=== PATIENT | female | born 1965 | race Caucasian/White ===

== ENCOUNTER 2016-10-15 13:36 | Emergency (ER) | payer OTHER ==
[~2016-10-15] VITALS: Ht 170.2 cm; Wt 72.6 kg
[~2016-10-15 13:36] MED LIST: MULT-506 PO
[2016-10-15 13:45] VITALS: TEMP 37; Ht 170.2 cm; Wt 72.6 kg
[2016-10-15] MEDS ORDERED: DiphenhydrAMINE HCL 50 MG/ML VIAL ONE (13:51)
[2016-10-15] MEDS ORDERED: FAMOTIDINE 20MG/102 ML D5W ONE (13:51)
[2016-10-15] MEDS ORDERED: EPINEPHRINE ADULT AUTO-INJECT 0.3 MG SYR ONE (13:51)
[2016-10-15] MEDS ORDERED: METHYLPREDNISOLONE 125 MG VIAL ONE (13:51)
[2016-10-15] MEDS ORDERED: DiphenhydrAMINE HCL 50 MG/ML VIAL IV STA (13:52)
[2016-10-15] MEDS ORDERED: METHYLPREDNISOLONE 125 MG VIAL IV STA (13:52)
[2016-10-15] MEDS ORDERED: FAMOTIDINE 20MG/102 ML D5W IV STA (13:52)
[2016-10-15] MEDS ORDERED: EpINEphrine INJ 1MG/ML AMP 1 MG/ML AMP IM STA (13:52)
--- NOTE | 2016-10-15 14:10 | EMERGENCY ROOM VISIT NOTE ---
History Report prepared by Roe: John Douglas Under the Supervision of: Dr. iDpesh Lal M.D. First contact with patient: 13:47 Chief Complaint: ALLERGIC REACTION Stated Complaint: ALLERGIC REACTION Nursing Triage Summary: Triage Note: Pt reports facial swelling since approx 1215 while at the grocery store. pt reports taking 3 benedryl tablets prior to arrival to ed. pt reports "i am talking funny and my throat feels funny." pt reports she does not know what is causing the reaction and that this happend once before on sep 17 2016 but she did not seek medical attention at that time. History of Present Illness The patient is a 50 year old female who presents to the Emergency Room with complaints of a worsening allergic reaction beginning two hours ago. Her symptoms include facial swelling, and throat soreness. She states that she used Flonase shortly before her symptoms began and feels that this may be related. The patient has a history of similar symptoms but is uncertain as to what she is allergic to. She denies eating any abnormal foods. Source of History: patient Onset: two hours prior to arrival Position: head (face) Quality: other (possible allergic reaction) Timing: worsening Note: The patient also complains of throat soreness. Review of Systems See HPI for pertinent positives & negatives. A total of 10 systems reviewed and were otherwise negative. Past Medical & Surgical Medical Problems: (1) GERD (gastroesophageal reflux disease) Family History No pertinent family history stated. Social History Smoking Status: Never Smoker Marital Status: Current/Historical Medications Scheduled Epinephrine (Epipen 2-Nathan), 1 DOSE IM DIRECTED Omeprazole (Prilosec), 1 CAP PO DAILY Prednisone (Prednisone), 2 TAB PO DAILY Allergies Coded Allergies: Sulfamethoxazole w/Trimethoprim (Unverified Allergy, Severe, THROAT CLOSES , 10/15/16) Uncoded Allergies: OPIATEAGONISTS (Allergy, Unknown, 10/09/09) Physical Exam Vital Signs Date Time Temp Pulse Resp B/P Pulse Ox O2 Delivery O2 Flow Rate FiO2 10/15/16 17:31 79 16 107/71 97 Room Air 10/15/16 16:44 89 16 119/61 98 Room Air 10/15/16 16:15 69 16 103/64 97 Room Air 10/15/16 15:45 77 16 108/74 98 Room Air 10/15/16 15:15 81 20 102/75 98 Room Air 10/15/16 14:58 77 16 113/79 98 Room Air 10/15/16 14:43 120/72 122/72 10/15/16 14:36 88 15 98 10/15/16 14:34 116/81 10/15/16 14:06 86 22 100 10/15/16 14:02 134/88 10/15/16 13:58 75 10/15/16 13:45 37.0 68 18 148/88 99 Room Air 10/15/16 13:43 98 Room Air Physical Exam GENERAL: Patient is in no acute distress. HEENT: Edema around both eyes without cellulitis. Edema of both upper and lower lips. No uvular edema or posterior pharyngeal swelling. Mucous membranes are moist. NECK: No stridor, no adenopathy, no meningismus, trachea is midline. LUNGS: Clear to auscultation bilaterally, no wheeze, no rhonchi, breath sounds equal. HEART: Without murmurs gallops or rubs, regular rate and rhythm. ABDOMEN: Soft, nontender, bowel sounds positive, no hernias, no peritonitis. EXTREMITIES: No cyanosis or edema, full range of motion of all the joints without pain or difficulty, no signs for acute trauma. NEUROLOGIC: Oriented x 3, no acute motor or sensory deficits, no focal weakness. SKIN: No rash, no jaundice, no diaphoresis. Medical Decision & Procedures Medications Administered Medications (Trade) Dose Ordered Sig/Jj Route Start Time Stop Time Status Last Admin Dose Admin Diphenhydramine HCl (Benadryl Inj) 25 mg NOW STAT IV 10/15/16 13:52 10/15/16 13:53 DC 10/15/16 13:58 25 MG Famotidine (Pepcid 20mg/100 ml) 20 mg ONE STAT IV 10/15/16 13:52 10/15/16 13:53 DC 10/15/16 13:57 20 MG Methylprednisolone Sodium Succinate (Solu-Medrol IV) 125 mg NOW STAT IV 10/15/16 13:52 10/15/16 13:53 DC 10/15/16 13:57 125 MG Epinephrine (Epipen) 0.3 mg STK-MED ONCE .ROUTE 10/15/16 13:51 10/15/16 13:53 DC 10/15/16 13:59 0.3 MG ED Course 1349: The patient was evaluated in room B1. A complete history and physical exam was performed. 1352: Ordered Solu-Medrol 125 mg IV, Pepcid 20 mg/100 mL 20 mg IV, Benadryl Inj 25 mg IV, Epinephrine HCl 0.3 mg IM. 1519: I reassessed the patient. She is feeling a lot better. 1734: I checked in on the patient. She feels better and would like to go home. 1740: Reevaluated the patient. Discussed results and discharge instructions: she verbalized understanding and agreement. The patient is ready for discharge. Medical Decision The patient is a 50 year old female who presents to the ED with complaints of an allergic reaction. Differential diagnoses considered include acute allergic reaction, anaphylaxis, food/environmental/medication allergy, uvular edema, as well as other etiologies were considered. The patient presents with an acute allergic reaction involving her face. Her throat feels tight. She was aggressively managed. She had taken some oral Benadryl prior to arrival. The patient received IM epinephrine, IV Solu-Medrol, IV Pepcid and IV Benadryl. She was watched on the monitor for 4 hours. She has had marked improvement in her symptoms, the facial swelling and edema have almost completely resolved. At this point, the cause for the allergic reaction is unclear. The patient will avoid Flonase for now in case this was the culprit. She is being discharged with an EpiPen. She will be on prednisone and Benadryl for the next few days. If she is worsening, she can return. She will see her doctor as an outpatient for allergy testing. Impression Primary Impression: Acute allergic reaction Scribe Attestation The scribe's documentation has been prepared under my direction and personally reviewed by me in its entirety. I confirm that the note above accurately reflects all work, treatment, procedures, and medical decision making performed by me. Departure Information Dispostion Home / Self-Care Prescriptions Epinephrine (EPIPEN 2-NATHAN) 0.3 Mg Inj 1 DOSE IM DIRECTED, #1 APPL Prov: Dipesh Lal M.D. 10/15/16 Prednisone (Prednisone) 20 Mg Tab 2 TAB PO DAILY for 4 Days, #8 TAB Prov: Dipesh Lal M.D. 10/15/16 Referrals Domitila York D.O. (PCP) Forms HOME CARE DOCUMENTATION FORM, IMPORTANT VISIT INFORMATION Patient Instructions [facility] Additional Instructions benadryl 2 tab 3x per day for 4 days sleep with the head elevated prednisone daily for 4 more days no more flonase for now keep epipen with you at all times and use if needed return for worsening symptoms follow with john md for recheck--you may need allergy testing
[2016-10-15] MEDS ORDERED: PRLSR20 PO (15:18)
[2016-10-15 17:31] VITALS: BP 107/71; PULSE 79; O2SAT 97
[2016-10-15] MEDS ORDERED: PRED20TA PO (17:36)
[2016-10-15] MEDS ORDERED: EPP3/2 IM (17:36)
[2016-10-15] MEDS ORDERED: EPINEPHRINE ADULT AUTO-INJECT 0.3 MG SYR IM STA (17:37)
== END 2016-10-15 17:51 | disposition home or self-care (01) ==
LOC: C.EDB 13:37
DX: T78.40XA Allergy, unspecified, initial encounter (principal); R22.0 Localized swelling, mass and lump, head; J02.9 Acute pharyngitis, unspecified; K21.9 Gastro-esophageal reflux disease without esophagitis; Z79.899 Other long term (current) drug therapy; X58.XXXA Exposure to other specified factors, initial encounter

== ENCOUNTER → 2017-07-03 | Outpatient (CLI) | payer OTHER ==
[~2017-07-03] MED LIST changes: +EPP3/2 IM; -MULT-506 PO; +PRLSR20 PO
--- NOTE | 2017-07-04 07:25 | MAMMOGRAPHY REPORT ---
BILATERAL DIGITAL SCREENING MAMMOGRAM TOMOSYNTHESIS WITH CAD: 07/03/2017 CLINICAL HISTORY: Routine screening. Patient has no complaints. TECHNIQUE: Breast tomosynthesis in addition to standard 2D mammography was performed. Current study was also evaluated with a Computer Aided Detection (CAD) system. COMPARISON: Comparison is made to exams dated: 06/28/2016 mammogram, 06/23/2015 mammogram, 4 mammogram, 06/18/2013 mammogram, 05/28/2010 mammogram, and 06/03/2011 mammogram - [facility]. BREAST COMPOSITION: The tissue of both breasts is heterogeneously dense, which may obscure small mas ses. FINDINGS: Again noted is a stable well-circumscribed 8 mm mass in the central right breast, unchanged dating back to at least 2008, therefore likely benign. No new suspicious mass, architectural distor tion or cluster of microcalcifications is seen. IMPRESSION: ACR BI-RADS CATEGORY 1: NEGATIVE There is no mammographic evidence of malignancy. A 1 year screening mammogram is recommended. The pa tient will receive written notification of the results. Approximately 10% of breast cancers are not detected with mammography. A negative mammographic report should not delay biopsy if a clinically suggestive mass is present. Ching Jerome M.D. ay/:07/03/2017 15:21:51 Airline Mechanic: Anna ARMIJO)(M), [facility] letter sent: Normal 1/2 BI-RADS Code: ACR BI-RADS Category 1: Negative
== END | disposition home or self-care (01) ==
LOC: C.MAMM 09:29
PROVIDERS: ATTEND Obstetrics & Gynecology
DX: Z12.31 Encounter for screening mammogram for malignant neoplasm of breast (principal)

== ENCOUNTER 2022-06-10 12:54 | Inpatient (IN) ==
[2022-06-10] MEDS ORDERED: METOPROLOL TARTRATE 1 MG/ML VIAL IV STA (13:18)
[2022-06-10] MEDS ORDERED: SODIUM CHLORIDE 0.9% 1000ML 1,000 ML IV ONE (13:21)
--- NOTE | 2022-06-10 13:21 | Emergency Department Note ---
Impression & Plan Atrial tachycardia, Chest pain, Shortness of breath ED Provider Note NAME: JANELLE HUANG AGE: 56 SEX: F : 1965 ARRIVES VIA: Walk-In INFORMANT: Patient ED PROVIDER(S): Willard Rendon DO CHIEF COMPLAINT: palpitations HPI: Patient is a 59-year-old female who presents ER for palpitations. She has a past medical history of GERD. She admits to chest pain and shortness of breath with any exertion which has been going on for the past 5 days. She notes this normally coincides with her heart racing. This occurs intermittently. Her heart rate can start increasing regardless of whether she is sitting or up moving around. No dysuria, urgency, or frequency. She notes she has constant chest tightness. Patient denies diabetes, hypertension, hyperlipidemia, CAD, history of sudden at a young age, and smoking. ROS: See above HPI for pertinent positives & negatives. A total of 10 systems reviewed and were otherwise negative. PAST MEDICAL HISTORY:See Below PAST SURGICAL HISTORY:See Below FAMILY HISTORY:See Below SOCIAL HISTORY:See Below HOME MEDICATIONS:See Below ALLERGIES:See Below VITALS:See Below PHYSICAL EXAMINATION: GENERAL: Sitting up in bed, alert, well appearing, well nourished, no distress, non-toxic EYE EXAM: normal conjunctiva. OROPHARYNX: no exudate, no erythema, lips, buccal mucosa, and tongue normal and mucous membranes are moist NECK: supple, no nuchal rigidity, no adenopathy, non-tender LUNGS: Clear to auscultation. Normal chest wall mechanics HEART: no murmurs, S1 normal and S2 normal ABDOMEN: abdomen soft, non-tender, normo-active bowel sounds, no masses, no rebound or guarding. UPPER EXTREMITIES: upper extremities are grossly normal. LOWER EXTREMITIES: No pitting edema. NEURO EXAM: Normal sensorium, cranial nerves II-XII grossly intact, normal speech, no gross weakness of arms, no gross weakness of legs. MEDICAL DECISION MAKING: Patient is a 56-year-old female who presents ER for palpitations associated with chest pressure and shortness of breath. This been coming going for the past 5 days but fairly constant today and consequently she came in. IV was established blood work was obtained. Labs show no significant leukocytosis or anemia. BMP with LFTs bilirubin and TSH was unremarkable. Lipase was normal. Troponin was negative. COVID was negative. Chest x-ray unremarkable. EKG and monitoring showing that she is varying between a sinus rhythm in the 70s and 80s and then atrial tachycardia in the 130s. This occurred multiple times. She was given dose of Lopressor. Did discuss with Dr. Arnold Sneed and the [facility] hospitalist for further evaluation. Following Lopressor heart rate trended down. She remained hemodynamically stable in the ER. She is updated bedside. Triage Nursing notes reviewed. Limited review of prior medical records performed Vital Signs: reviewed and remarkable for HTN Differential diagnosis: Cardiac ischemia, aortic dissection, pulmonary embolism, pneumothorax, pneumonia, pericarditis, myocarditis, esophageal rupture, GERD, cholecystitis, pancreatitis, musculoskeletal, as well as other pathologies. ER treatment provided: See below Diagnostics interpreted by me: ECG: Atrial tachycardia rate of 126 Normal axis No PVCs Nonspecific ST wave changes in the lateral leads QTC 460 Cardiac Monitoring: An order was placed for continuous cardiac monitoring. The monitor shows a rate of 122 with sinus rhythm. Laboratory studies: As stated above and show below. Imaging studies: Portable AP upright 1 view of the chest unremarkable Consultation(s): As described above Procedures: none Critical Care: None Past Med/Surg History Medical History (Updated 06/10/22 @ 18:18 by Willard Rendon DO) GERD (gastroesophageal reflux disease) OCCASIONAL History of COVID-19 08/2020 SOB, NAUSEA, FATIGUE- ER VISIT- NO HOSPITALIZATION Sinus tachycardia Surgical History History of section History of colonoscopy History of dilatation and curettage History of esophagogastroduodenoscopy (EGD) History of hysterectomy RAVEN History of open reduction and internal fixation (ORIF) procedure RIGHT WRIST History of repair of rotator cuff RIGHT History of tonsillectomy Hx of elbow surgery BILAT Family History Father Prostate cancer Other No pertinent family history Denies family history of Ovarian cancer Breast cancer Colorectal cancer Social History Smoking Status: Former smoker Tobacco Type: Cigarettes Second Hand Exposure: No; Hx Alcohol Use: Yes (1-2 DAILY) Alcohol type: hard liquor Hx Substance Use: No Preferred Language: Greenlandic Communication Ability: Effective Trashman Required: No Beliefs That Will Affect Care: None Current Living Situation: Spouse Feels Safe at Home: Yes Assistive Devices: Glasses Allergies Allergies Allergy/AdvReac Type Severity Reaction Status Date / Time fluticasone [From Flonase] Allergy Severe FACE AND Verified 06/10/22 17:21 EYES SWELLED UP--HAD TO COME TO ER. sulfamethoxazole Allergy Severe THROAT Verified 06/10/22 17:21 CLOSES trimethoprim Allergy Severe THROAT Verified 06/10/22 17:21 CLOSES Home Meds Home Medications Medication Instructions Recorded Confirmed ibuprofen 200 mg tablet (Advil) 600 - 800 mg PO Q8 PRN Pain 06/10/22 06/10/22 omeprazole magnesium 20 mg 20 mg PO DAILY PRN Acid Reflux 06/10/22 06/10/22 tablet,delayed release (Prilosec OTC) Results & Data (ED) Vital Signs Vital Signs - 24 hr 06/10/22 12:56 06/10/22 13:37 06/10/22 13:48 Temperature 36.6 C Temperature Source Temporal Artery Scan Pulse Rate 89 92 H Pulse Rate [Apical] 86 Respiratory Rate 14 18 Respiratory Effort / Characteristics Non-Labored Respiratory Depth Normal Respiratory Pattern Regular Blood Pressure 145/97 H 127/98 Blood Pressure [Right Arm] 126/84 Blood Pressure Mean 113 Blood Pressure Mean [Right Arm] 98 Blood Pressure Position Sitting Blood Pressure Position [Right Arm] Sitting Pulse Oximetry 99 98 Oxygen Delivery Method Room Air Sepsis Recent Fever Within 48 Hours No Sepsis New/Unexplained Change in Mental Status N/A Sepsis Action Taken by Nursing No Action Required 06/10/22 13:48 06/10/22 13:48 06/10/22 15:00 Temperature Temperature Source Pulse Rate 99 H Pulse Rate [Apical] 100 H Respiratory Rate 18 18 Respiratory Effort / Characteristics Respiratory Depth Respiratory Pattern Blood Pressure Blood Pressure [Right Arm] 113/85 Blood Pressure Mean Blood Pressure Mean [Right Arm] 94 Blood Pressure Position Blood Pressure Position [Right Arm] Pulse Oximetry 98 Oxygen Delivery Method Room Air Room Air Sepsis Recent Fever Within 48 Hours Sepsis New/Unexplained Change in Mental Status Sepsis Action Taken by Nursing Laboratory Data Result diagrams: 06/10/22 13:22 06/10/22 13:22 Lab Results 06/10/22 06/10/22 06/10/22 Range/Units 13:22 13:22 13:22 WBC 5.43 (4.8-10.8) K/ul RBC 4.39 (3.93-5.22) M/uL Hgb 14.2 (12.0-16.0) g/dl Hct 41.5 (34.1-44.9) % MCV 94.5 (80.0-100.0) fL MCH 32.3 (25.0-34.0) pg MCHC 34.2 (32.0-36.0) g/dL RDW Std Deviation 49.1 H (36.4-46.3) fL RDW Coeff of Linsey 14.0 (11.5-14.5) % Plt Count 258 (130-400) K/uL MPV 9.6 (9.4-12.3) fL Immature Gran % (Auto) 0.6 % Neut % (Auto) 69.1 % Lymph % (Auto) 21.4 % Redwood % (Auto) 7.6 % Eos % (Auto) 0.7 % Baso % (Auto) 0.6 % Neut # (Auto) 3.76 (1.4-6.5) K/uL Lymph # (Auto) 1.16 L (1.2-3.4) K/uL Redwood # (Auto) 0.41 (0.24-0.82) K/uL Eos # (Auto) 0.04 (0-0.50) K/uL Baso # (Auto) 0.03 (0-0.2) K/uL Immature Gran # (Auto) 0.03 H (0.00-0.02) K/uL D-Dimer 530 H* (0-500) ug/L FEU Sodium 139 (136-145) mmol/L Potassium 4.1 (3.5-5.1) mmol/L Chloride 103 (98-107) mmol/L Carbon Dioxide 29 (21-32) mmol/L Anion Gap 7 (3-11) BUN 19 (6-23) mg/dl Creatinine 0.89 (0.6-1.2) mg/dl Est Cr Clr Drug Dosing 68.6 ml/min Est GFR ( Amer) 84.0 ml/min Est GFR (Non-Af Amer) 72.5 ml/min BUN/Creatinine Ratio 21.3 H (10-20) Glucose 94 (70-99(Fasting)) mg/dl Calcium 9.6 (8.5-10.1) mg/dl Total Bilirubin 0.4 (0.2-1.0) mg/dl AST 18 (13-39) U/L ALT 15 (7-52) U/L Alkaline Phosphatase 57 (34-104) U/L Troponin I High Sens < 2.3 (0-14) pg/ml Total Protein 6.6 (6.0-8.3) gm/dl Albumin 4.5 (3.4-5.0) gm/dl Globulin 2.1 L (2.5-4.0) gm/dl Albumin/Globulin Ratio 2.1 H (0.9-2) Lipase 55 (11-82) U/L TSH (0.300-4.500) uIu/ml SARS-CoV-2, RNA, NAAT (NEGATIVE) 06/10/22 06/10/22 06/10/22 Range/Units 13:33 15:04 16:17 WBC (4.8-10.8) K/ul RBC (3.93-5.22) M/uL Hgb (12.0-16.0) g/dl Hct (34.1-44.9) % MCV (80.0-100.0) fL MCH (25.0-34.0) pg MCHC (32.0-36.0) g/dL RDW Std Deviation (36.4-46.3) fL RDW Coeff of Linsey (11.5-14.5) % Plt Count (130-400) K/uL MPV (9.4-12.3) fL Immature Gran % (Auto) % Neut % (Auto) % Lymph % (Auto) % Redwood % (Auto) % Eos % (Auto) % Baso % (Auto) % Neut # (Auto) (1.4-6.5) K/uL Lymph # (Auto) (1.2-3.4) K/uL Redwood # (Auto) (0.24-0.82) K/uL Eos # (Auto) (0-0.50) K/uL Baso # (Auto) (0-0.2) K/uL Immature Gran # (Auto) (0.00-0.02) K/uL D-Dimer (0-500) ug/L FEU Sodium (136-145) mmol/L Potassium (3.5-5.1) mmol/L Chloride (98-107) mmol/L Carbon Dioxide (21-32) mmol/L Anion Gap (3-11) BUN (6-23) mg/dl Creatinine (0.6-1.2) mg/dl Est Cr Clr Drug Dosing ml/min Est GFR ( Amer) ml/min Est GFR (Non-Af Amer) ml/min BUN/Creatinine Ratio (10-20) Glucose (70-99(Fasting)) mg/dl Calcium (8.5-10.1) mg/dl Total Bilirubin (0.2-1.0) mg/dl AST (13-39) U/L ALT (7-52) U/L Alkaline Phosphatase (34-104) U/L Troponin I High Sens 2.4 (0-14) pg/ml Total Protein (6.0-8.3) gm/dl Albumin (3.4-5.0) gm/dl Globulin (2.5-4.0) gm/dl Albumin/Globulin Ratio (0.9-2) Lipase (11-82) U/L TSH 0.929 (0.300-4.500) uIu/ml SARS-CoV-2, RNA, NAAT NEGATIVE (NEGATIVE) Administered Medications Discontinued Medications Sodium Chloride (Nss 1000ml) 1,000 mls @ 999 mls/hr IV .Q1H1M ONE Stop: 06/10/22 14:21 Last Infusion: 06/10/22 15:02 Dose: 0 mls/hr Documented By: Admin: 06/10/22 13:36 Dose: 999 mls/hr Documented By: NISHI Ioversol (Ioversol 350 Mg 100ml Prefilled Syringe) 117 ml IV ONCE ONE Stop: 06/10/22 17:20 Last Admin: 06/10/22 17:21 Dose: 117 ml Documented By: RAMILA Ioversol (Optiray 300 500ml) 117 ml IV ONCE ONE Stop: 06/10/22 17:24 Last Admin: 06/10/22 17:23 Dose: 117 ml Documented By: RAMILA Metoprolol Tartrate (Metoprolol Tartrate 1 Mg/Ml Vial) 5 mg IV NOW STA Stop: 06/10/22 13:19 Last Admin: 06/10/22 13:37 Dose: 5 mg Documented By: AY Imaging Data Radiologist's Impression: Chest X-Ray 06/10/22 13:05 XR chest 1V portable HISTORY: 56 years-old Female Chest Pain . Chest pain COMPARISON: Chest radiograph 08/27/2020 TECHNIQUE: AP view of the chest FINDINGS: Cardiomediastinal and hilar silhouettes are within normal limits. No pneum othorax, pleural effusion, airspace consolidation or overt pulmonary edema. Bones of the chest appear grossly intact. IMPRESSION: No acute process. ACT 112: Negative or not required by law. The above report was generated using voice recognition software. It may contain grammatical, syntax or spelling errors. Electronically signed by: Rikki Farias M.D. 06/10/2022 2:06 PM Chest CTA 06/10/22 16:39 CT ANGIOGRAPHY OF THE CHEST, PULMONARY EMBOLUS PROTOCOL CLINICAL HISTORY: Chest pain. Shortness of breath. Tachycardia. Evaluate for pulmonary embolus. COMPARISON STUDY: Chest CT June 27, 2020. Chest radiograph performed earlier today. TECHNIQUE: Following IV administration of 117 mL of Optiray, helical axial images of the chest were obtained utilizing the pulmonary embolus protocol. Maximal intensity projections and sagittal and coronal reformats were viewed on an independent 3D workstation. IV contrast was administered without complication. Automated exposure control was utilized for the study. A dose lowering technique was utilized adhering to the principles of ALARA. CT DOSE: 315.68 mGy.cm FINDINGS: No pulmonary emboli are identified. There is no thoracic aortic dissection. Size of the heart is normal. No pericardial effusion is present. No enlarged axillary, mediastinal or hilar lymph nodes are present. A 9 mm central right breast nodule is unchanged since prior CT. This is probably benign. Possib le small hiatal hernia. There is no consolidation to suggest pneumonia. Minimal subpleural ground glass opacities reflect atelectasis. Central airways are patent. There is no pneumothorax or pleural effusion. No acute fracture or suspicious lesion within the visualized bony thorax is identified. Visualized portions of the upper abdomen are unremarkable. IMPRESSION: 1. No pulmonary emboli identified. 2. No acute intrathoracic findings. ACT 112: Negative or not required by law. Electronically signed by: Jamar Lucia M.D. 06/10/2022 5:34 PM Discharge Plan Visit Data Chief Complaint: Cardiac Assessment Stated Complaint: HEART PROBLEMS ED Provider: Willard Rendon Discharge Problem: Atrial tachycardia, Chest pain, Shortness of breath Forms Stand Alone Forms: [facility] [employer] Prescriptions Prescriptions: No Action ibuprofen [Advil] 200 mg Tablet 600 - 800 mg PO Q8 PRN (Reason: Pain) omeprazole magnesium [Prilosec OTC] 20 mg Tablet,Delayed Release (Dr/Ec) 20 mg PO DAILY PRN (Reason: Acid Reflux) Referrals Referrals: Domitila York DO [Primary Care Provider] -
[2022-06-10 13:36] LABS: Basophils # (auto) 0.03 K/uL (0-0.2); Basophils % (auto) 0.6 %; Eosinophils # (auto) 0.04 K/uL (0-0.50); Eosinophils % (auto) 0.7 %; Hematocrit (blood only) 41.5 % (34.1-44.9); Hemoglobin 14.2 g/dl (12.0-16.0); Immature Granulocytes # (auto) 0.03 K/uL (0.00-0.02); Immature Granulocytes % (auto) 0.6 %; Lymphocytes # (auto) 1.16 K/uL (1.2-3.4); Lymphocytes % (auto) 21.4 %; Mean Corpuscular Hemoglobin 32.3 pg (25.0-34.0); Mean Corpuscular Hgb Conc 34.2 g/dL (32.0-36.0); Mean Corpuscular Volume 94.5 fL (80.0-100.0); Mean Platelet Volume 9.6 fL (9.4-12.3); Monocytes # (auto) 0.41 K/uL (0.24-0.82); Monocytes % (auto) 7.6 %; Neutrophils # (auto) 3.76 K/uL (1.4-6.5); Neutrophils % (auto) 69.1 %; Platelet Count 258 K/uL (130-400); RDW Standard Deviation 49.1 fL (36.4-46.3); Red Blood Count 4.39 M/uL (3.93-5.22); White Blood Count 5.43 K/ul (4.8-10.8)
[2022-06-10 14:06] LABS: Alanine Aminotransferase 15 U/L (7-52); Albumin Globulin Ratio 2.1 (0.9-2); Albumin Level 4.5 gm/dl (3.4-5.0); Alkaline Phosphatase 57 U/L (34-104); Anion Gap 7 (3-11); Aspartate Aminotransferase 18 U/L (13-39); BUN Creatinine Ratio 21.3 (10-20); Bilirubin,Total 0.4 mg/dl (0.2-1.0); Blood Urea Nitrogen 19 mg/dl (6-23); Calcium 9.6 mg/dl (8.5-10.1); Carbon Dioxide 29 mmol/L (21-32); Chloride 103 mmol/L (98-107); Creatinine Clr Calc Pharmacy 68.6 ml/min; Est GFR (Non-African American) 72.5 ml/min; Globulin 2.1 gm/dl (2.5-4.0); Glucose 94 mg/dl (70-99(Fasting)); Lipase 55 U/L (11-82); Potassium 4.1 mmol/L (3.5-5.1); Sodium 139 mmol/L (136-145); Total Protein 6.6 gm/dl (6.0-8.3)
--- NOTE | 2022-06-10 14:08 | XRay Report ---
XR chest 1V portable HISTORY: 56 years-old Female Chest Pain . Chest pain COMPARISON: Chest radiograph 08/27/2020 TECHNIQUE: AP view of the chest FINDINGS: Cardiomediastinal and hilar silhouettes are within normal limits. No pneumothorax, pleural effusion, airspace consolidation or overt pulmonary edema. Bones of the chest appear grossly intact. IMPRESSION: No acute process. ACT 112: Negative or not required by law. The above report was generated using voice recognition software. It may contain grammatical, syntax o r spelling errors. Electronically signed by: Rikki Farias M.D. 06/10/2022 2:06 PM
[2022-06-10 14:09] LABS: Troponin I High Sensitivity < 2.3 pg/ml (0-14)
--- NOTE | 2022-06-10 15:43 | History & Physical Report ---
Date of Service June 10, 2022 Assessment & Plan (1) Sinus tachycardia: Plan: Admit the patient to telemetry As needed Lopressor TSH normal. No further work-up needed Will check D-dimer to rule out thromboembolic disease. If elevated, will order CT angiogram of the chest to rule out PE D- Dimer elevated and I ordered stat CTA of chest which is negative for PE. Present on Admission?: Yes History of Present Illness Chief Complaint: Palpitation Primary Care Provider: Domitila York DO Patient is a 56-year-old female with no significant past medical history who presented to the hospital with palpitation and chest tightness since 5 days ago. This could happen in any condition. It is associated with lightheadedness and tightness of the chest. She is a started on hormonal treatment for menopause few weeks ago and she thought that palpitation could be due to that. She stopped her medication 2 days ago but the palpitation continues to persist. She denies chest pain but complains of tightness. No complaint of shortness of breath, fever or chills, nausea or vomiting, abdominal pain or other GI or symptoms. She did not have recent travels or long distance flight. She experienced a crampy pain in left calf muscle a week ago which resolved. She denies any swelling or discoloration of lower extremities. She also does not remember any thyroid work-up. She sees her primary care physician on regular basis and is not currently taking any treatment for any medical problems. Allergies Allergy/AdvReac Type Severity Reaction Status Date / Time fluticasone [From Flonase] Allergy Severe FACE AND Verified 06/10/22 17:21 EYES SWELLED UP--HAD TO COME TO ER. sulfamethoxazole Allergy Severe THROAT Verified 06/10/22 17:21 CLOSES trimethoprim Allergy Severe THROAT Verified 06/10/22 17:21 CLOSES Home Medications Medication Instructions Recorded Confirmed Type ibuprofen 200 mg tablet (Advil) 600 - 800 mg PO Q8 PRN Pain 06/10/22 06/10/22 History omeprazole magnesium 20 mg 20 mg PO DAILY PRN Acid Reflux 06/10/22 06/10/22 History tablet,delayed release (Prilosec OTC) Past Med/Surg History Medical History (Updated 06/10/22 @ 15:41 by Sonya Robins MD) GERD (gastroesophageal reflux disease) OCCASIONAL History of COVID-19 08/2020 SOB, NAUSEA, FATIGUE- ER VISIT- NO HOSPITALIZATION Sinus tachycardia Surgical History History of section History of colonoscopy History of dilatation and curettage History of esophagogastroduodenoscopy (EGD) History of hysterectomy RAVEN History of open reduction and internal fixation (ORIF) procedure RIGHT WRIST History of repair of rotator cuff RIGHT History of tonsillectomy Hx of elbow surgery BILAT Family History Father Prostate cancer Other No pertinent family history Denies family history of Ovarian cancer Breast cancer Colorectal cancer Social History Smoking Status: Former smoker Tobacco Type: Cigarettes Second Hand Exposure: No; Hx Alcohol Use: Yes (1-2 DAILY) Alcohol type: hard liquor Hx Substance Use: No Preferred Language: Malian 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 Review of system is otherwise negative Physical Exam Constitutional: WD/WN, vitals as above Eyes: PERRL, conjunctivae normal, anicteric sclerae Neck: trachea midline, no thyromegaly Respiratory: normal respiratory effort, lungs clear to auscultation Cardiovascular: Rate/Rhythm: regular rhythm and + tachycardic Heart Sounds: normal S1 and normal S2 Gastrointestinal (Abdomen): normal bowel sounds, soft, nontender, no hepatosplenomegaly Musculoskeletal: no cyanosis or clubbing, extremities motor strength 5/5 Skin: no rashes, warm and dry Neurologic: patellar DTR's 2+ bilat, sensation intact and PERRL, EOMI, accommodation nl, no face palsy, no dysarthria Results & Data Results & Data ([facility]) Vital Signs (Past 12 Hours) Vital Signs Temp Pulse Pulse Resp BP BP Pulse Ox 06/10/22 13:48 99 H 18 98 06/10/22 13:48 06/10/22 13:48 86 18 126/84 98 06/10/22 13:37 92 H 127/98 06/10/22 12:56 36.6 C 89 14 145/97 H 99 O2 Del Method 06/10/22 13:48 Room Air 06/10/22 13:48 Room Air 06/10/22 13:48 06/10/22 13:37 06/10/22 12:56 Room Air Laboratory Results Laboratory Results WBC 5.43 K/ul (4.8-10.8) 06/10/22 13:22 RBC 4.39 M/uL (3.93-5.22) 06/10/22 13:22 Hgb 14.2 g/dl (12.0-16.0) 06/10/22 13:22 Hct 41.5 % (34.1-44.9) 06/10/22 13:22 MCV 94.5 fL (80.0-100.0) 06/10/22 13:22 MCH 32.3 pg (25.0-34.0) 06/10/22 13: MCHC 34.2 g/dL (32.0-36.0) 06/10/22 13:22 RDW Std Deviation 49.1 fL (36.4-46.3) H 06/10/22 13:22 RDW Coeff of Linsey 14.0 % (11.5-14.5) 06/10/22 13:22 Plt Count 258 K/uL (130-400) 06/10/22 13:22 MPV 9.6 fL (9.4-12.3) 06/10/22 13:22 Immature Gran % (Auto) 0.6 % 06/10/22 13:22 Neut % (Auto) 69.1 % 06/10/22 13:22 Lymph % (Auto) 21.4 % 06/10/22 13:22 [place]dwell % (Auto) 7.6 % 06/10/22 13:22 Eos % (Auto) 0.7 % 06/10/22 13:22 Baso % (Auto) 0.6 % 06/10/22 13:22 Neut # (Auto) 3.76 K/uL (1.4-6.5) 06/10/22 13:22 Lymph # (Auto) 1.16 K/uL (1.2-3.4) L 06/10/22 13:22 [place]dwell # (Auto) 0.41 K/uL (0.24-0.82) 06/10/22 13:22 Eos # (Auto) 0.04 K/uL (0-0.50) 06/10/22 13:22 Baso # (Auto) 0.03 K/uL (0-0.2) 06/10/22 13:22 Immature Gran # (Auto) 0.03 K/uL (0.00-0.02) H 06/10/22 13:22 Sodium 139 mmol/L (136-145) 06/10/22 13:22 Potassium 4.1 mmol/L (3.5-5.1) 06/10/22 13:22 Chloride 103 mmol/L (98-107) 06/10/22 13:22 Carbon Dioxide 29 mmol/L (21-32) 06/10/22 13:22 Anion Gap 7 (3-11) 06/10/22 13:22 BUN 19 mg/dl (6-23) 06/10/22 13:22 Creatinine 0.89 mg/dl (0.6-1.2) 06/10/22 13:22 Est Cr Clr Drug Dosing 68.6 ml/min 06/10/22 13:22 Est GFR ( Amer) 84.0 ml/min 06/10/22 13:22 Est GFR (Non-Af Amer) 72.5 ml/min 06/10/22 13:22 BUN/Creatinine Ratio 21.3 (10-20) H 06/10/22 13:22 Glucose 94 mg/dl (70-99(Fasting)) 06/10/22 13:22 Calcium 9.6 mg/dl (8.5-10.1) 06/10/22 13:22 Total Bilirubin 0.4 mg/dl (0.2-1.0) 06/10/22 13:22 AST 18 U/L (13-39) 06/10/22 13:22 ALT 15 U/L (7-52) 06/10/22 13:22 Alkaline Phosphatase 57 U/L (34-104) 06/10/22 13:22 Troponin I High Sens < 2.3 pg/ml (0-14) 06/10/22 13:22 Total Protein 6.6 gm/dl (6.0-8.3) 06/10/22 13:22 Albumin 4.5 gm/dl (3.4-5.0) 06/10/22 13:22 Globulin 2.1 gm/dl (2.5-4.0) L 06/10/22 13:22 Albumin/Globulin Ratio 2.1 (0.9-2) H 06/10/22 13:22 Lipase 55 U/L (11-82) 06/10/22 13:22 TSH 0.929 uIu/ml (0.300-4.500) 06/10/22 13:33 Impressions Chest X-Ray 06/10/22 13:05 XR chest 1V portable HISTORY: 56 years-old Female Chest Pain . Chest pain COMPARISON: Chest radiograph 08/27/2020 TECHNIQUE: AP view of the chest FINDINGS: Cardiomediastinal and hilar silhouettes are within normal limits. No pneumothorax, pleural effusion, airspace consolidation or overt pulmonary edema. Bones of the chest appear grossly intact. IMPRESSION: No acute process. ACT 112: Negative or not required by law. The above report was generated using voice recognition software. It may contain grammatical, syntax or spelling errors. Electronically signed by: Rikki Farias M.D. 06/10/2022 2:06 PM Code Status & VTE Plan Code Status Full code VTE Prophylaxis Plan VTE Prophylaxis will be ordered: Yes
[2022-06-10 16:34] LABS: D Dimer 530 ug/L FEU (0-500)
[2022-06-10] MEDS ORDERED: IOVERSOL 350 MG 100mL Prefilled Syringe IV ONE (17:19)
[2022-06-10] MEDS ORDERED: OPTIRAY 300 500mL IV ONE (17:23)
--- NOTE | 2022-06-10 17:37 | CT Scan Report ---
CT ANGIOGRAPHY OF THE CHEST, PULMONARY EMBOLUS PROTOCOL CLINICAL HISTORY: Chest pain. Shortness of breath. Tachycardia. Evaluate for pulmonary embolus. COMPARISON STUDY: Chest CT June 27, 2020. Chest radiograph performed earlier today. TECHNIQUE: Following IV administration of 117 mL of Optiray, helical axial images of the chest were o btained utilizing the pulmonary embolus protocol. Maximal intensity projections and sagittal and cor onal reformats were viewed on an independent 3D workstation. IV contrast was administered without co mplication. Automated exposure control was utilized for the study. A dose lowering technique was ut ilized adhering to the principles of ALARA. CT DOSE: 315.68 mGy.cm FINDINGS: No pulmonary emboli are identified. There is no thoracic aortic dissection. Size of the he art is normal. No pericardial effusion is present. No enlarged axillary, mediastinal or hilar lymph n odes are present. A 9 mm central right breast nodule is unchanged since prior CT. This is probably be nign. Possible small hiatal hernia. There is no consolidation to suggest pneumonia. Minimal subpleura l ground glass opacities reflect atelectasis. Central airways are patent. There is no pneumothorax or pleural effusion. No acute fracture or suspicious lesion within the visualized bony thorax is identi fied. Visualized portions of the upper abdomen are unremarkable. IMPRESSION: 1. No pulmonary emboli identified. 2. No acute intrathoracic findings. ACT 112: Negative or not required by law. Electronically signed by: Jamar Lucia M.D. 06/10/2022 5:34 PM
--- NOTE | 2022-06-10 18:25 | Electrocardiogram Report ---
Test Reason : Blood Pressure : / mmHG Vent. Rate : 070 BPM Atrial Rate : 070 BPM P-R Int : 120 ms QRS Dur : 086 ms QT Int : 354 ms P-R-T Axes : 037 059 048 degrees QTc Int : 382 ms Poor data quality, interpretation may be adversely affected Normal sinus rhythm Normal ECG When compared with ECG of 17-JAN-2022 09:46, No significant change was found Confirmed by Butch Chambers ([id number]) on 06/10/2022 6:25:36 PM Referred By: REFERRED SELF Confirmed By:Willy Chambers
[2022-06-10] MEDS ORDERED: MAGNESIUM HYDROXIDE SUSP 30 ML UDC PO PRN (18:40)
[2022-06-10] MEDS ORDERED: ALUMINUM/MAGNESIUM SUSP 30 ML UDC PO PRN (18:40)
[2022-06-10] MEDS ORDERED: METOPROLOL TARTRATE 1 MG/ML VIAL IV PRN ×2 (18:40→18:53)
[2022-06-10] MEDS ORDERED: ONDANSETRON INJ 2 MG/ML 2 ML VIAL IV PRN (18:40)
[2022-06-10] MEDS ORDERED: POLYETHYLENE (MIRALAX) 17 GM PACK PO PRN (18:40)
[2022-06-10] MEDS ORDERED: ACETAMINOPHEN 325 MG TAB PO PRN (18:40)
[2022-06-10] MEDS: ENOXAPARIN INJ 40 MG/0.4 ML SYR SQ SCH (20:22)
--- NOTE | 2022-06-11 11:50 | Cardiology Consultation ---
Date of Consultation June 11, 2022 Assessment & Plan (1) PSVT (paroxysmal supraventricular tachycardia): (2) GERD (gastroesophageal reflux disease): Plan This PSVT may be atrial flutter with 2-1 conduction. I am going to start her on atenolol 25 mg daily. She should remain on the telemetry while we start this medication. I will review her echocardiogram that was completed today. I do not believe at this time we are dealing with acute coronary syndrome. Her discomfort is atypical and may be related to reflux. She should be placed on a PPI. With the possibility of reflux, I would not anticoagulate her at this time. Thyroid studies were normal. History of Present Illness Attending Physician: Calos Friedman MD History of Present Illness This is a 56-year-old female with no prior history of heart disease. 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 Also she has been having some symptoms related to menopause. She has a history of reflux and had undergone an EGD followed by treatment with Prilosec. The treatment seemed to resolve the problem and she had been doing well until recently she is noted some atypical chest pain. The chest pain has been atypical and that its not related to exertion. It usually last through most of the day and is a dull continuous ache. She has had no nausea vomiting. No change in her bowel habits. No melena or hematochezia. She is a nondiabetic. She is a never smoke. No history of hypertension or high cholesterol. After admission to the emergency department she was noted to have sinus tachycardia and was given IV metoprolol. I reviewed her telemetry and she is in sinus mechanism but has had some runs of narrow complex tachycardia with a rate of 150 which may be consistent with atrial flutter with 2-1 conduction. Her TSH is within normal limits. CT of the chest was negative for pulmonary emboli. High-sensitivity troponins have been negative. Allergies Allergy/AdvReac Type Severity Reaction Status Date / Time fluticasone [From Flonase] Allergy Severe FACE AND Verified 06/10/22 17:21 EYES SWELLED UP--HAD TO COME TO ER. sulfamethoxazole Allergy Severe THROAT Verified 06/10/22 17:21 CLOSES trimethoprim Allergy Severe THROAT Verified 06/10/22 17:21 CLOSES Home Medications Medication Instructions Recorded Confirmed Type ibuprofen 200 mg tablet (Advil) 600 - 800 mg PO Q8 PRN Pain 06/10/22 06/10/22 History omeprazole magnesium 20 mg 20 mg PO DAILY PRN Acid Reflux 06/10/22 06/10/22 History tablet,delayed release (Prilosec OTC) Patient History Medical History GERD (gastroesophageal reflux disease) OCCASIONAL History of COVID-19 08/2020 SOB, NAUSEA, FATIGUE- ER VISIT- NO HOSPITALIZATION Sinus tachycardia Surgical History History of section History of colonoscopy History of dilatation and curettage History of esophagogastroduodenoscopy (EGD) History of hysterectomy RAVEN History of open reduction and internal fixation (ORIF) procedure RIGHT WRIST History of repair of rotator cuff RIGHT History of tonsillectomy Hx of elbow surgery BILAT Family History Father Prostate cancer Other No pertinent family history Denies family history of Ovarian cancer Breast cancer Colorectal cancer Social History Smoking Status: Never smoker Tobacco Type: Cigarettes Second Hand Exposure: No; Hx Alcohol Use: Yes Alcohol type: hard liquor Hx Substance Use: No Preferred Language: Ivorian Communication Ability: Effective 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 All other 10 point review of systems are negative. Physical Exam Physical Exam: General: no acute distress and stated age Head: normocephalic, no masses, lesions, tenderness or abnormalities Eyes: conjunctiva are pink and non-injected, sclera clear Neck: supple, no adenopathy, no bruits, normal jugular venous pulse, no hepatojugular reflux Chest: normal shape and normal respiratory effort Lungs: clear to auscultation and percussion Cardiac Exam: - regular rate & rhythm, no murmurs gallops or rubs - normal S1, normal S2 Pulses: 2(+) throughout Abdomen: abdomen soft, non-tender, no abnormal masses and no hepatosplenomegaly Musculoskeletal: no gait disturbance, no joint inflammation, no deforming arthritis Extremities: no edema and no cyanosis Neuro: grossly normal exam Results & Data ([facility]) Vital Signs (Past 12 Hours) Vital Signs Temp Pulse Resp BP BP Pulse Ox O2 Del Method 06/11/22 08:17 36.5 C 58 L 21 112/77 98 Room Air 06/11/22 03:11 36.6 C 65 16 109/72 98 Room Air Laboratory Results Laboratory Results - last 24 hr 06/10/22 06/10/22 06/10/22 13:22 13:22 13:22 WBC 5.43 RBC 4.39 Hgb 14.2 Hct 41.5 MCV 94.5 MCH 32.3 MCHC 34.2 RDW Std Deviation 49.1 H RDW Coeff of Linsey 14.0 Plt Count 258 MPV 9.6 Immature Gran % (Auto) 0.6 Neut % (Auto) 69.1 Lymph % (Auto) 21.4 [place] % (Auto) 7.6 Eos % (Auto) 0.7 Baso % (Auto) 0.6 Neut # (Auto) 3.76 Lymph # (Auto) 1.16 L [place] # (Auto) 0.41 Eos # (Auto) 0.04 Baso # (Auto) 0.03 Immature Gran # (Auto) 0.03 H D-Dimer 530 H* Sodium 139 Potassium 4.1 Chloride 103 Carbon Dioxide 29 Anion Gap 7 BUN 19 Creatinine 0.89 Est Cr Clr Drug Dosing 68.6 Est GFR ( Amer) 84.0 Est GFR (Non-Af Amer) 72.5 BUN/Creatinine Ratio 21.3 H Glucose 94 Calcium 9.6 Total Bilirubin 0.4 AST 18 ALT 15 Alkaline Phosphatase 57 Troponin I High Sens < 2.3 Total Protein 6.6 Albumin 4.5 Globulin 2.1 L Albumin/Globulin Ratio 2.1 H Lipase 55 TSH SARS-CoV-2, RNA, NAAT 06/10/22 06/10/22 06/10/22 13:33 15:04 16:17 WBC RBC Hgb Hct MCV MCH MCHC RDW Std Deviation RDW Coeff of Linsey Plt Count MPV Immature Gran % (Auto) Neut % (Auto) Lymph % (Auto) Cascade % (Auto) Eos % (Auto) Baso % (Auto) Neut # (Auto) Lymph # (Auto) Cascade # (Auto) Eos # (Auto) Baso # (Auto) Immature Gran # (Auto) D-Dimer Sodium Potassium Chloride Carbon Dioxide Anion Gap BUN Creatinine Est Cr Clr Drug Dosing Est GFR ( Amer) Est GFR (Non-Af Amer) BUN/Creatinine Ratio Glucose Calcium Total Bilirubin AST ALT Alkaline Phosphatase Troponin I High Sens 2.4 Total Protein Albumin Globulin Albumin/Globulin Ratio Lipase TSH 0.929 SARS-CoV-2, RNA, NAAT NEGATIVE Medications Administered Current Inpatient Medications Acetaminophen (Acetaminophen 325 Mg Tab) 650 mg PO Q4H PRN PRN Reason: pain/fever Stop: 07/10/22 18:39 Al Hydrox/Mg Hydrox/Simethicone (Aluminum/Magnesium Susp 30 Ml Udc) 30 ml PO Q6H PRN PRN Reason: Dyspepsia Stop: 07/10/22 18:39 Atenolol (Atenolol 25 Mg Tablet) 25 mg PO QAM SHENG Stop: 07/11/22 11:44 Enoxaparin Sodium (Enoxaparin Inj 40 Mg/0.4 Ml Syr) 40 mg SQ QPM SHENG Stop: 07/10/22 20:59 Last Admin: 06/10/22 20:22 Dose: 40 mg Magnesium Hydroxide (Magnesium Hydroxide Susp 30 Ml Udc) 30 ml PO Q6H PRN PRN Reason: Constipation Stop: 07/10/22 18:39 Metoprolol Tartrate (Metoprolol Tartrate 1 Mg/Ml Vial) 5 mg IV Q6H PRN PRN Reason: Tachycardia> 120 Stop: 07/10/22 18:39 Ondansetron HCl (Ondansetron Inj 2 Mg/Ml 2 Ml Vial) 4 mg IV Q6H PRN PRN Reason: Nausea Stop: 07/10/22 18:39 Polyethylene Glycol (Polyethylene (Miralax) 17 Gm Pack) 17 gm PO DAILY PRN PRN Reason: Constipation Stop: 07/10/22 18:39
[2022-06-11] MEDS: ATENOLOL 25 MG TABLET PO SCH (12:35)
[2022-06-11] MEDS: PANTOprazole 40 MG TAB PO SCH (12:41)
--- NOTE | 2022-06-11 12:42 | Electrocardiogram Report ---
Test Reason : Blood Pressure : / mmHG Vent. Rate : 112 BPM Atrial Rate : 112 BPM P-R Int : 130 ms QRS Dur : 074 ms QT Int : 332 ms P-R-T Axes : 067 066 039 degrees QTc Int : 453 ms Sinus rhythm with runs of PAT similar to sinus Possible Left atrial enlargement Nonspecific ST abnormality Abnormal ECG When compared with ECG of 10-JUN-2022 13:05, PAT is now present ST now depressed in Anterior leads Nonspecific T wave abnormality now evident in Inferior leads Confirmed by Iggy Mahmood ([id number]) on 06/11/2022 12:42:02 PM Referred By: REFERRED SELF Confirmed By:Iggy Mahmood
--- NOTE | 2022-06-11 12:43 | Electrocardiogram Report ---
Test Reason : Blood Pressure : / mmHG Vent. Rate : 126 BPM Atrial Rate : 126 BPM P-R Int : 138 ms QRS Dur : 082 ms QT Int : 318 ms P-R-T Axes : 071 066 046 degrees QTc Int : 460 ms Sinus rhythm with PAT similar to sinus Possible Left atrial enlargement Nonspecific ST abnormality Abnormal ECG When compared with ECG of 10-JUN-2022 13:10, (unconfirmed) No significant change was found Confirmed by Iggy Mahmood ([id number]) on 06/11/2022 12:43:08 PM Referred By: REFERRED SELF Confirmed By:Iggy Mahmood
[2022-06-11 15:19] LABS: Lyme Ab IgG w/WB Rflx Negative (Negative); Lyme Ab IgM w/WB Rflx Negative (Negative)
--- NOTE | 2022-06-11 16:34 | Hospitalist Progress Note ---
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 Admitting troponin and TSH WNL. D-dimer was elevated, CTA chest was done and negative for PE. Admitting and follow-up EKG reviewed. Discussed with cardiology, it might likely be atrial flutter based on telemetry review, plan to start her on atenolol and monitor overnight. Follow-up echo. Patient put on Protonix to rule out symptoms from possible GERD. DVT prophylaxis: Lovenox Full code Admission and Anticipated Discharge Date Admission Date: June 10, 2022 Subjective Patient seen and examined at bedside as a follow-up of PSVT likely a flutter. Patient was lying in bed, on room air, NAD, reports intermittent sensation of p alpitation while in hospital, likely a flutter in telemetry review -- rates in 140s to 150s, patient denies headache or dizziness or sore throat or cough or fever or chills or belly pain or acute changes in her bowel or bladder habits or other review of symptoms. She reports eating okay. Discussed with cardiology at bedside, plan to continue to monitor her overnight, plan to start her on beta-yousuf. Physical Exam Physical Exam: GENERAL: Alert and oriented x3. NAD, on RA. HEENT: No pallor, no icterus. Pupils equal, round and reactive to light. Oral mucosa moist. NECK: No JVD, no neck masses. HEART: S1 and S2 heard. Regular rate and rhythm. No murmur, no gallop. RESPIRATORY SYSTEM: Normal AP diameter. No accessory muscle use. No wheezing, no crackles. ABDOMEN: Soft, bowel sounds present, nontender, no distention. CENTRAL NERVOUS SYSTEM: No facial droop. Speech is clear. Obeys simple commands. Moves extremities. EXTREMITIES: No edema, no erythema seen. Results & Data Results & Data ([facility]) Vital Signs (Past 12 Hours) Vital Signs Temp Pulse Pulse Resp BP Pulse Ox O2 Del Method 06/11/22 15:55 36.8 C 60 21 128/77 97 Room Air 06/11/22 15:08 83 06/11/22 08:00 83 06/11/22 11:50 36.9 C 78 19 133/82 94 Room Air 06/11/22 08:17 36.5 C 58 L 21 112/77 98 Room Air
[2022-06-11] MEDS: ENOXAPARIN INJ 40 MG/0.4 ML SYR SQ SCH (20:58)
[2022-06-12 07:19] LABS: Hematocrit (blood only) 42.5 % (34.1-44.9); Hemoglobin 14.3 g/dl (12.0-16.0); Mean Corpuscular Hgb Conc 33.6 g/dL (32.0-36.0); Mean Corpuscular Volume 95.1 fL (80.0-100.0); Mean Platelet Volume 9.9 fL (9.4-12.3); Platelet Count 265 K/uL (130-400); RDW Coefficient of Variation 13.8 % (11.5-14.5); RDW Standard Deviation 48.8 fL (36.4-46.3); Red Blood Count 4.47 M/uL (3.93-5.22); White Blood Count 4.06 K/ul (4.8-10.8)
[2022-06-12] MEDS: PANTOprazole 40 MG TAB PO SCH (07:44)
[2022-06-12 08:05] LABS: BUN Creatinine Ratio 18.6 (10-20); Calcium 9.5 mg/dl (8.5-10.1); Est GFR (African American) 87.5 ml/min; Est GFR (Non-African American) 75.5 ml/min; Magnesium 2.2 mg/dl (1.7-2.4); Phosphorus 3.6 mg/dl (2.5-4.9); Potassium 3.8 mmol/L (3.5-5.1)
[2022-06-12] MEDS ORDERED: ASPIRIN 81 MG ECTAB PO SCH (09:00)
[2022-06-12] MEDS: ATENOLOL 25 MG TABLET PO SCH (09:39)
--- NOTE | 2022-06-12 10:01 | Cardiology Progress Note ---
Date of Service June 12, 2022 Assessment & Plan (1) PSVT (paroxysmal supraventricular tachycardia): (2) GERD (gastroesophageal reflux disease): Plan The patient's PSVT has markedly improved with the start of atenolol. She was still having some short runs last night but this morning after second dose of atenolol she is remained in a normal sinus rhythm. Also, after starting the Protonix her chest discomfort has markedly improved. I think would be reasonable to allow the patient to be discharged home today to outpatient follow-up. I am uncertain as to whether the patient has atrial flutter with 2-1 conduction versus a sinus node reentry tachycardia. I will have her see one of our EP physicians as an outpatient. I think the risk versus benefit would favor not starting her on anticoagulation but she should take aspirin 81 mg daily. Admission and Anticipated Discharge Date Admission Date: June 10, 2022 Subjective The patient feels markedly improved today. Review of Systems Review of Systems: Review of Systems: See HPI for pertinent positives. All other 10 point review of systems are negative. Physical Exam Physical Exam: General: no acute distress and stated age Head: normocephalic, no masses, lesions, tenderness or abnormalities Eyes: conjunctiva are pink and non-injected, sclera clear Neck: supple, no adenopathy, no bruits, normal jugular venous pulse, no hepatojugular reflux Chest: normal shape and normal respiratory effort Lungs: clear to auscultation and percussion Cardiac Exam: - regular rate & rhythm, no murmurs gallops or rubs - normal S1, normal S2 Pulses: 2(+) throughout Abdomen: abdomen soft, non-tender, no abnormal masses and no hepatosplenomegaly Musculoskeletal: no gait disturbance, no joint inflammation, no deforming arthritis Extremities: no edema and no cyanosis Neuro: grossly normal exam Results & Data ([facility]) Vital Signs (Past 12 Hours) Vital Signs Temp Pulse Pulse Resp BP Pulse Ox O2 Del Method 06/12/22 07:35 36.6 C 60 18 100/68 99 Room Air 06/12/22 07:16 59 L 06/12/22 03:08 36.7 C 65 20 98/63 L 98 Room Air 06/11/22 22:55 36.7 C 66 19 119/84 97 Room Air Laboratory Results Laboratory Results - last 24 hr 06/11/22 06/12/2222 13:56 06:21 06:21 WBC 4.06 L RBC 4.47 Hgb 14.3 Hct 42.5 MCV 95.1 MCH 32.0 MCHC 33.6 RDW Std Deviation 48.8 H RDW Coeff of Linsey 13.8 Plt Count 265 MPV 9.9 Sodium 132 L Potassium 3.8 Chloride 99 Carbon Dioxide 29 Anion Gap 4 BUN 16 Creatinine 0.86 Est Cr Clr Drug Dosing 71.0 Est GFR ( Amer) 87.5 Est GFR (Non-Af Amer) 75.5 BUN/Creatinine Ratio 18.6 Glucose 90 Calcium 9.5 Phosphorus 3.6 Magnesium 2.2 Lyme Disease IgG Ab Negative Lyme Disease IgM Ab Negative Medications Administered Current Inpatient Medications Acetaminophen (Acetaminophen 325 Mg Tab) 650 mg PO Q4H PRN PRN Reason: pain/fever Stop: 07/10/22 18:39 Al Hydrox/Mg Hydrox/Simethicone (Aluminum/Magnesium Susp 30 Ml Udc) 30 ml PO Q6H PRN PRN Reason: Dyspepsia Stop: 07/10/22 18:39 Aspirin (Aspirin 81 Mg Ectab) 81 mg PO [facility] Stop: 07/12/22 08:59 Last Admin: 06/12/22 09:39 Dose: 81 mg Atenolol (Atenolol 25 Mg Tablet) 25 mg PO [facility] Stop: 07/11/22 11:44 Last Admin: 06/12/22 09:39 Dose: 25 mg Enoxaparin Sodium (Enoxaparin Inj 40 Mg/0.4 Ml Syr) 40 mg SQ QPM [facility] Stop: 07/10/22 20:59 Last Admin: 06/11/22 20:58 Dose: 40 mg Magnesium Hydroxide (Magnesium Hydroxide Susp 30 Ml Udc) 30 ml PO Q6H PRN PRN Reason: Constipation Stop: 07/10/22 18:39 Metoprolol Tartrate (Metoprolol Tartrate 1 Mg/Ml Vial) 5 mg IV Q6H PRN PRN Reason: Tachycardia> 120 Stop: 07/10/22 18:39 Ondansetron HCl (Ondansetron Inj 2 Mg/Ml 2 Ml Vial) 4 mg IV Q6H PRN PRN Reason: Nausea Stop: 07/10/22 18:39 Pantoprazole Sodium (Pantoprazole 40 Mg Tab) 40 mg PO [facility] Stop: 07/11/22 11:59 Last Admin: 06/12/22 07:44 Dose: 40 mg Polyethylene Glycol (Polyethylene (Miralax) 17 Gm Pack) 17 gm PO DAILY PRN PRN Reason: Constipation Stop: 07/10/22 18:39
--- NOTE | 2022-06-12 12:08 | Discharge Summary ---
Discharge Summary Date of Service June 12, 2022 Notes For Next Care Provider Patient was admitted for chest discomfort/possible GERD [relieved with Protonix] and palpitation [got better with atenolol]. Patient will need cardiology follow-up, PCP follow-up in a week, likely lead pl sql developer follow-up as an outpatient. Patient will need blood test BMP and magnesium level in a week time. Patient is started on atenolol, aspirin and pantoprazole on discharge. Medication Changes From Visit You are started on atenolol, aspirin and pantoprazole on discharge. Admission HPI Per Admitting Provider Patient is a 56-year-old female with no significant past medical history who presented to the hospital with palpitation and chest tightness since 5 days ago. This could happen in any condition. It is associated with lightheadedness and tightness of the chest. She is a started on hormonal treatment for menopause few weeks ago and she thought that palpitation could be due to that. She stopped her medication 2 days ago but the palpitation continues to persist. She denies chest pain but complains of tightness. No complaint of shortness of breath, fever or chills, nausea or vomiting, abdominal pain or other GI or symptoms. She did not have recent travels or long distance flight. She experienced a crampy pain in left calf muscle a week ago which resolved. She denies any swelling or discoloration of lower extremities. She also does not remember any thyroid work-up. She sees her primary care physician on regular basis and is not currently taking any treatment for any medical problems. Admission Exam Per Admitting Provider Constitutional: WD/WN, vitals as above Eyes: PERRL, conjunctivae normal, anicteric sclerae Neck: trachea midline, no thyromegaly Respiratory: normal respiratory effort, lungs clear to auscultation Cardiovascular: Rate/Rhythm: regular rhythm and + tachycardic Heart Sounds: normal S1 and normal S2 Gastrointestinal (Abdomen): normal bowel sounds, soft, nontender, no hepatosplenomegaly Musculoskeletal: no cyanosis or clubbing, extremities motor strength 5/5 Skin: no rashes, warm and dry Neurologic: patellar DTR's 2+ bilat, sensation intact and PERRL, EOMI, accommodation nl, no face palsy, no dysarthria Principal Dx & Hospital Course #1 = Principal Diagnosis (1) PSVT (paroxysmal supraventricular tachycardia): Plan 56-year-old lady was managed for the following: PSVT Atypical chest discomfort Patient with no significant PMH presented to the hospital 06/10 with palpitation 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 Admitting troponin and TSH WNL. D-dimer was elevated, CTA chest was done and negative for PE. Admitting and follow-up EKG reviewed. Echo reviewed and fairly WNL. Discussed with cardiology, plan to discharge her on atenolol and aspirin, plan to follow-up with cardiology and lead pl sql developer as an outpatient Patient put on Protonix to rule out symptoms from possible GERD. Patient reports some improvement of her chest symptoms with Protonix. Patient had improvement with her feeling of palpitation after atenolol started yesterday and felt even better after second dose of atenolol today DVT prophylaxis: Lovenox Full code Patient being discharged home with following instruction at the point of discharge: Follow-up with your primary care physician within a week time. And likely you will be ordered blood test BMP and magnesium. For your chest discomfort/possibility of GERD, you have been started on Protonix. For your cardiac condition including palpitation, you are started on atenolol and aspirin. Maintain follow-up with cardiology as an outpatient, you will likely need further evaluation by lead pl sql developer that your cardiology office will arrange for you. Take your medications as prescribed. Discharge Exam GENERAL: Alert and oriented x3. NAD, on RA. HEENT: No pallor, no icterus. Pupils equal, round and reactive to light. Oral mucosa moist. NECK: No JVD, no neck masses. HEART: S1 and S2 heard. Regular rate and rhythm. No murmur, no gallop. RESPIRATORY SYSTEM: Normal AP diameter. No accessory muscle use. No wheezing, no crackles. ABDOMEN: Soft, bowel sounds present, nontender, no distention. CENTRAL NERVOUS SYSTEM: No facial droop. Speech is clear. Obeys simple commands. Moves extremities. EXTREMITIES: No edema, no erythema seen. Updated Medication List Medication Instructions Recorded Confirmed Type ibuprofen 200 mg tablet (Advil) 600 - 800 mg PO Q8 PRN Pain 06/10/22 06/10/22 History omeprazole magnesium 20 mg 20 mg PO DAILY PRN Acid Reflux 06/10/22 06/10/22 History tablet,delayed release (Prilosec OTC) aspirin 81 mg tablet,delayed 81 mg PO QAM #30 tabs 06/12/22 Rx release atenolol 25 mg tablet 25 mg PO QAM #30 tabs 06/12/22 Rx pantoprazole 40 mg tablet,delayed 40 mg PO QAM #30 tabs 06/12/22 Rx release Hospital Stay Data Consultations 06/10/22 15:06 ED Decision to Admit Stat 06/10/22 18:40 Consult Cardiology Routine Diagnostic Imagining Performed 06/10/22 16:39 CT angio chest PE protocol Stat Pending Results Patient Have Any Pending Studies at Discharge: No Discharge Instructions Given to Patient (Per Discharging Provider) Follow-up with your primary care physician within a week time. And likely you will be ordered blood test BMP and magnesium. For your chest discomfort/possibility of GERD, you have been started on Protonix. For your cardiac condition including palpitation, you are started on atenolol and aspirin. Maintain follow-up with cardiology as an outpatient, you will likely need further evaluation by lead pl sql developer that your cardiology office will arrange for you. Take your medications as prescribed. Total Time Total Time Spent Total Time Spent (In Minutes): 35
[2022-06-12 16:30] LABS: Anion Gap 6.6 (3-11)
== END 2022-06-12 13:00 | disposition home or self-care (01) | DRG 310 ==
LOC: ED 12:54 → SUATTDRO 15:13 → 2W 15:13
DX: K21.9 Gastro-esophageal reflux disease without esophagitis; Z88.2 Allergy status to sulfonamides; I47.1 Supraventricular tachycardia; Z88.8 Allergy status to other drugs, medicaments and biological substances; Z86.16 Personal history of COVID-19